=== PATIENT | female | born 1985 | race Caucasian/White ===

== ENCOUNTER 2017-01-01 17:44 | Emergency (ER) | payer SELFPAY ==
[2017-01-01 18:28] VITALS: BP 135/85
[2017-01-01] MEDS ORDERED: Amoxicillin/Clavulanate TAB* 875 MG PO ONE (19:54)
--- NOTE | 2017-01-01 20:01 | UC ---
Throat Pain/Nasal Adi HPI - HPI Summary HPI Summary: ONE MONTH OF SINUS CONGESTION, PRESSURE, EAR NOSE PRESSURE, COUGH. LAST FEW DAYS SYMPTOMS WORSENING, VOICE BECOMING HOARSE. - History of Current Complaint Chief Complaint: UCRespiratory Stated Complaint: SORE THROAT, AND EAR ACHE Time Seen by Provider: 01/01/17 19:27 Hx Obtained From: Patient Hx Last Menstrual Period: NOW Onset/Duration: Gradual Onset, Lasting Weeks Severity: Moderate Cough: Nonproductive Associated Signs & Symptoms: Positive: Hoarseness, Sinus Discomfort, Nasal Discharge - Epiglottits Risk Factors Epiglottis Risk Factors: Negative - Allergies/Home Medications Allergies/Adverse Reactions: Allergies Allergy/AdvReac Type Severity Reaction Status Date / Time Hydrocodone Allergy Nausea And Verified 01/01/17 18:28 Vomiting Home Medications: Home Medications Dextromethorphan-Phenylephrine [Vicks Dayquil Cold & Flu] 2 cap PO PRN 01/01/17 [History] PMH/Surg Hx/FS Hx/Imm Hx Previously Healthy: Yes - Surgical History Surgical History: Yes Surgery Procedure, Year, and Place: appy. bilateral shoulder operations. R breast lumpectomy - Family History Known Family History: Positive: Cardiac Disease - Father of cardiac illness - Social History Occupation: Employed Full-time Lives: With Family Alcohol Use: Rare Substance Use Type: None Smoking Status (MU): Current Every Day Smoker Type: Cigarettes Amount Used/How Often: 3-4 CIG/day When Did the Patient Quit Smoking/Using Tobacco: quit with - Immunization History Most Recent Influenza Vaccination: up to date Most Recent Tetanus Shot: 2016 Most Recent Pneumonia Vaccination: none Review of Systems Constitutional: Fatigue Skin: Negative Eyes: Negative ENT: Sore Throat, Ear Ache, Nasal Discharge, Sinus Congestion, Sinus Pain/ Tenderness Respiratory: Cough Cardiovascular: Negative Gastrointestinal: Negative Genitourinary: Negative Motor: Negative Neurovascular: Negative Musculoskeletal: Negative Neurological: Negative Psychological: Negative Is Patient Immunocompromised?: No All Other Systems Reviewed And Are Negative: Yes Physical Exam Triage Information Reviewed: Yes Appearance: No Pain Distress, Well-Nourished, Ill-Appearing - MILDLY Vital Signs: Initial Vital Signs Temp 98.8 F 01/01/17 18:25 Pulse 88 01/01/17 18:25 Resp 16 01/01/17 18:25 BP 135/85 01/01/17 18:25 Pulse Ox 100 01/01/17 18:25 Vital Signs Reviewed: Yes Eye Exam: Normal ENT: Positive: Hearing grossly normal, Nasal congestion, TM bulging, TM dull Dental Exam: Normal Neck exam: Normal Neck: Positive: Supple, Nontender, No Lymphadenopathy Respiratory Exam: Normal Respiratory: Positive: Chest non-tender, Lungs clear, Normal breath sounds, No respiratory distress, No accessory muscle use Cardiovascular Exam: Normal Cardiovascular: Positive: RRR, No Murmur, Pulses Normal Abdominal Exam: Normal Abdomen Description: Positive: Nontender, No Organomegaly Musculoskeletal Exam: Normal Musculoskeletal: Positive: Strength Intact, ROM Intact Neurological Exam: Normal Psychological Exam: Normal Skin Exam: Normal Throat Pain/Nasal Course/Dx - Differential Dx/Diagnosis Differential Diagnosis/HQI/PQRI: Pharyngitis, Sinusitis, Tonsillitis, URI Provider Diagnoses: SINUSITIS; BRONCHITIS; LARYNGITIS Discharge - Discharge Plan Condition: Stable Disposition: HOME Prescriptions: Amoxicillin/Clavulanate TAB* [Augmentin TAB 875*] 875 mg PO BID #20 tab Benzonatate CAP* [Tessalon 100 MG CAP*] 100 mg PO TID #15 cap Patient Education Materials: Sinusitis (ED), Laryngitis (ED), Syncope (ED), Upper Respiratory Infection (ED) Referrals: Derek Shafer MD [Primary Care Provider] -
== END 2017-01-01 20:00 | disposition home or self-care (01) ==
LOC: UCEAST 17:44
DX: J04.0 Acute laryngitis (principal); F17.210 Nicotine dependence, cigarettes, uncomplicated; J40 Bronchitis, not specified as acute or chronic; J01.90 Acute sinusitis, unspecified
CPT/HCPCS: 87651; 99212; A9270-GY; G0463

== ENCOUNTER 2017-10-12 00:13 | Emergency (ER) | payer SELFPAY ==
[2017-10-12] MEDS ORDERED: predniSONE TAB* 20 MG PO ONE (01:03)
[2017-10-12] MEDS ORDERED: Diazepam TAB(*) 5 MG PO ONE (01:03)
[2017-10-12] MEDS ORDERED: Ketorolac TAB * 10 MG TAB PO PRN (01:04)
[2017-10-12 01:54] LABS: Urine Appearance Clear; Urine Blood Negative (Negative); Urine Color Straw; Urine Ketones Negative (Negative); Urine Protein Negative (Negative); Urine Specific Gravity 1.003 (1.010-1.030); Urine Urobilinogen Negative (Negative)
--- NOTE | 2017-10-12 02:17 | ED ---
Back Pain - HPI Summary HPI Summary: Patient complains of sudden onset right lower back pain with radiation of pain and numbness and tingling down posterior right leg this evening while walking at [facility]. Denies trauma, fever, urinary retention, incontinence, bilateral leg pain, urinary symptoms, vaginal symptoms. History of degenerative disc disease, with chronic back pain. Denies history of sciatica. - History of Current Complaint Chief Complaint: EDBackInjuryPain Stated Complaint: SEVERE BACK PAIN Time Seen by Provider: 10/12/17 00:46 Hx Obtained From: Patient Hx Last Menstrual Period: NOW Onset/Duration: Sudden Onset Onset/Duration: Started Hours Ago Timing: Constant Back Pain Location: Is Discrete @ Severity Initially: Severe Severity Currently: Severe Pain Intensity: 10 Pain Scale Used: 0-10 Numeric Character: Sharp, Aching Aggravating Symptom(s): Movement, Bending Alleviating Symptom(s): Rest, Position Associated Signs And Symptoms: Positive: Numbness, Tingling - Allergies/Home Medications Allergies/Adverse Reactions: Allergies Allergy/AdvReac Type Severity Reaction Status Date / Time hydrocodone AdvReac Mild Nausea And Verified 10/12/17 00:14 Vomiting PMH/Surg Hx/FS Hx/Imm Hx Endocrine/Hematology History: Denies: Hx Diabetes, Hx Thyroid Disease Cardiovascular History: Denies: Hx Hypertension Respiratory History: Reports: Hx Asthma Denies: Hx Chronic Obstructive Pulmonary Disease (COPD) GI History: Denies: Hx Ulcer - Surgical History Surgery Procedure, Year, and Place: appy. bilateral shoulder operations. R breast lumpectomy Infectious Disease History: No Infectious Disease History: Denies: Hx Clostridium Difficile, Hx Hepatitis, Hx Human Immunodeficiency Virus (HIV), Hx of Known/Suspected MRSA, Hx Shingles, Hx Tuberculosis, Hx Known/ Suspected VRE, Hx Known/Suspected VRSA, History Other Infectious Disease, Traveled Outside the [place] in Last 30 Days - Family History Known Family History: Positive: Cardiac Disease - Father of cardiac illness - Social History Alcohol Use: Rare Substance Use Type: Reports: None Smoking Status (MU): Current Every Day Smoker Type: Cigarettes Amount Used/How Often: 3-4 CIG/day Review of Systems Constitutional: Negative Eyes: Negative ENT: Negative Cardiovascular: Negative Respiratory: Negative Gastrointestinal: Negative Genitourinary: Negative Musculoskeletal: Other Skin: Negative Neurological: Negative Psychological: Normal All Other Systems Reviewed And Are Negative: Yes Physical Exam - Summary Physical Exam Summary: No ecchymosis, erythema, deformity, swelling, extra warmth, mass noted to lower back, right leg. PMS intact distally. Tenderness to palpation along lower right back, right gluteus, right posterior thigh. Triage Information Reviewed: Yes Vital Signs On Initial Exam: Initial Vitals Temp Pulse Resp BP Pulse Ox 98.0 F 79 24 144/80 100 10/12/17 00:14 10/12/17 00:14 10/12/17 00:14 10/12/17 00:14 10/12/17 00:14 Vital Signs Reviewed: Yes Appearance: Positive: Well-Appearing Skin: Positive: Warm Head/Face: Positive: Normal Head/Face Inspection Eyes: Positive: Normal Neck: Positive: Supple Respiratory/Lung Sounds: Positive: Clear to Auscultation Cardiovascular: Positive: Normal Abdomen Description: Positive: Nontender Musculoskeletal: Positive: Normal Neurological: Positive: Normal Psychiatric: Positive: Normal AVPU Assessment: Alert - [place] Coma Scale Best Eye Response: 4 - Spontaneous Best Motor Response: 6 - Obeys Commands Best Verbal Response: 5 - Oriented Coma Scale Total: 15 Diagnostics - Vital Signs Vital Signs Temp Pulse Resp BP Pulse Ox 10/12/17 01:12 18 10/12/17 00:14 98.0 F 79 24 144/80 100 - Laboratory Lab Results: Lab Results 10/12/17 Range/Units 01:43 Urine Color Straw Urine Appearance Clear Urine pH 8.0 (5-9) Ur Specific [place] 1.003 L (1.010-1.030) Urine Protein Negative (Negative) Urine Ketones Negative (Negative) Urine Blood Negative (Negative) Urine Nitrate Negative (Negative) Urine Bilirubin Negative (Negative) Urine Urobilinogen Negative (Negative) Ur Leukocyte Esterase Negative (Negative) Urine Glucose Negative (Negative) Lab Statement: Any lab studies that have been ordered have been reviewed, and results considered in the medical decision making process. Back Pain Course/Dx - Course Course Of Treatment: Patient complains of sudden onset right lower back pain with radiation of pain and numbness and tingling down posterior right leg this evening while walking at [employer]. Denies trauma, fever, urinary retention, incontinence, bilateral leg pain, urinary symptoms, vaginal symptoms. History of degenerative disc disease, with chronic back pain. Denies history of sciatica. No ecchymosis, erythema, deformity, swelling, extra warmth, mass noted to lower back, right leg. PMS intact distally. Tenderness to palpation along lower right back, right gluteus, right posterior thigh. Patient ambulatory. Patient stated symptoms significantly improved with ibuprofen, prednisone, Valium. Rx for same. Recommend physical therapy. Follow up with orthopedics Dr. Aguilar. - Diagnoses Provider Diagnoses: Sciatica of right side Discharge - Sign-Out/Discharge Documenting (check all that apply): Patient Departure - Discharge Plan Condition: Stable Disposition: HOME Prescriptions: Diazepam TAB(*) [Valium TAB(*)] 5 mg PO TID PRN #6 tab MDD 3 tabs PRN Reason: Pain Ibuprofen TAB* [Motrin TAB* 600 MG] 600 mg PO Q6H PRN 5 Days #20 tab PRN Reason: Pain predniSONE TAB* [Deltasone 20 MG TAB*] 40 mg PO DAILY 5 Days #5 tab Patient Education Materials: Sciatica (ED), Lumbar Radiculopathy (ED), Lower Back Exercises (ED) Forms: *Work Release Referrals: Derek Shafer MD [Primary Care Provider] - Tawny Aguilar MD [Medical Doctor] - Additional Instructions: Follow-up with orthopedics Dr. Aguilar for back pain. Return to the ED for any new or worsening symptoms - Billing Disposition and Condition Condition: STABLE Disposition: Home
[2017-10-12 02:38] VITALS: BP 105/52
== END 2017-10-12 02:36 | disposition home or self-care (01) ==
LOC: ED 00:13
DX: M54.41 Lumbago with sciatica, right side (principal); F17.210 Nicotine dependence, cigarettes, uncomplicated; Z88.5 Allergy status to narcotic agent
CPT/HCPCS: 81003; 99282; A9270-GY; J7512

== ENCOUNTER 2018-07-21 06:00 | Inpatient (IN) | payer MEDICAID, OTHER ==
[~2018-07-21 06:00] MED LIST: Buffered Lidocaine 1% SYRIN* 1 ML/SYRINGE INTRADERM ONE; Lactated Ringers 1000 ML Bag* 1,000 ML IV SCH; Sodium Citrate/Citric Acid* 15 ML UDC PO ONE
[2018-07-21] MEDS ORDERED: ceFOXitin 2 GM IVPREMIX* 2 GM/50 ML BAG ONE (07:07)
[2018-07-21] MEDS ORDERED: Morphine PF AMP (0.5MG/ML)* 5 MG/10 ML AMP ONE (08:16)
[2018-07-21] MEDS ORDERED: OXYTOCIN* 10 UNITS/ML 1 ML VIAL ONE (09:24)
[2018-07-21] MEDS ORDERED: Lidocaine 2% PF * 5 ML VIAL ONE (09:24)
[2018-07-21] MEDS ORDERED: Propofol* 10 MG/ML 20 ML BTL ONE (09:24)
[2018-07-21] MEDS ORDERED: fentaNYL* 50 MCG/ML 2 ML VIAL (100 MCG VIAL) IV PRN (09:44)
[2018-07-21] MEDS ORDERED: DiMENhydriNATE IV* 50 MG/ML VIAL IV PUSH PRN (09:44)
[2018-07-21] MEDS ORDERED: Naloxone* 0.4 MG/ML 1 ML VIAL IV PRN ×2 (09:44→09:46)
[2018-07-21] MEDS ORDERED: Ketorolac INJ* 30 MG/ML 1 ML VIAL IV PRN (09:44)
[2018-07-21] MEDS ORDERED: Naloxone* 2 MG in NS 0.9% 250 ML* 250 ML IV PRN (09:46)
[2018-07-21] MEDS ORDERED: Nalbuphine* 10 MG/ML 1 ML VIAL IV PRN (09:46)
[2018-07-21] MEDS ORDERED: fentaNYL* 50 MCG/ML 2 ML VIAL (100 MCG VIAL) ONE (09:55)
[2018-07-21] MEDS ORDERED: Ketorolac INJ* 30 MG/ML 1 ML VIAL ONE (09:55)
--- NOTE | 2018-07-21 10:15 | OP ---
OPERATIVE REPORT: DATE OF OPERATION: 07/21/18 DATE OF : 87 SURGEON: Bradley Haynes MD. APPLIED PSYCHOLOGY CHAIR: Stephania Bundy CNM. ANESTHESIA: Spinal. PRE-OP DIAGNOSIS: Previous shoulder dystocia, desires sterilization. POST-OP DIAGNOSIS: Previous shoulder dystocia, desires sterilization. OPERATIVE PROCEDURE: Low-transverse section and bilateral tubal ligation. ESTIMATED BLOOD LOSS: 600 cc. SPECIMEN: Includes fallopian tubes. COMPLICATIONS: None. FINDINGS: Include normal uterus, tubes, and ovaries. Viable female. Apgars 8 and 9. Weight was 6 pounds 14 ounces.pt was given informed consent for vs vaginal with her history and questions were answered. DESCRIPTION OF PROCEDURE: The patient was identified, procedure identified as a low-transverse section. The patient was taken to the operating room , prepped and draped in the usual sterile fashion in the left lateral recumbent position under spinal anesthesia. Pfannenstiel incision was made in the abdomen , carried down through fat, fascia, and peritoneum. A transverse incision was made in the lower uterine segment and extended laterally using blunt dissection. The above was delivered in the Vertex presentation with ease. Cord was wrapped around the neck. This was looped off. The rest of the baby was delivered. The cord was doubly clamped and cut, and the was handed to the waiting banquet cook. Cord blood was obtained, placenta delivered spontaneously. The uterus was wiped out with a wet lap sponge. The uterine incision was then closed using 0 Polysorb in a running fashion. A second layer was used to imbricate the first layer. The right fallopian tube was grasped at the fimbriated end and ligated x2, and the right fimbria was excised. The same procedure was carried on the left after following it out to its fimbriated end. Good hemostasis was verified. The uterus was placed back into the abdominal cavity. The gutters were wiped out with a wet lap sponge. The incision was inspected and found to be hemostatic. Peritoneum was then closed using 3-0 Polysorb in a running fashion. Good hemostasis was achieved in the subrectus layers. The fascia was closed using 0-Polysorb in a running fashion. Good hemostasis was achieved in the subcu. Copious irrigation was utilized and suctioned out, and the skin was closed with 4-0 Monocryl in a subcuticular fashion. All sponge and instrument counts were correct, and the patient returned to the recovery room in stable condition. [id number]/[facility] #: [id number] [facility]
[2018-07-21] MEDS ORDERED: Oxytocin in LR* 20 UNITS/1,000 ML BAG IVPB ONE (10:18)
[2018-07-21] MEDS ORDERED: Ondansetron INJ* 2 MG/ML VIAL ONE (10:52)
[2018-07-21] MEDS ORDERED: Nalbuphine* 10 MG/ML 1 ML VIAL ONE (10:53)
[2018-07-21] MEDS ORDERED: Acetaminophen TAB* 325 MG PO PRN (10:56)
[2018-07-21] MEDS ORDERED: Dibucaine 1% 28.35 GM TUBE PR PRN (10:56)
[2018-07-21] MEDS ORDERED: Glycerin ADULT SUPP PR PRN (10:56)
[2018-07-21] MEDS ORDERED: Witch Hazel PAD* JAR TOPICAL PRN (10:56)
[2018-07-21] MEDS: Ondansetron INJ* 2 MG/ML VIAL IV PRN ×2 (10:56→17:06)
[2018-07-21] MEDS ORDERED: Oxytocin in LR* 20 UNITS/1,000 ML BAG IVPB SCH (11:00)
[2018-07-21] MEDS ORDERED: Lactated Ringers 1000 ML Bag* 1,000 ML IV SCH (11:00)
[2018-07-21] MEDS ORDERED: diPHENhydraMINE IV* 50 MG/ML 1 ml VIAL (BENADRYL) SLOW PUSH PRN (12:05)
[2018-07-21] MEDS: Nalbuphine* 10 MG/ML 1 ML VIAL IV PRN ×2 (12:23→20:15)
[2018-07-21] MEDS: Simethicone TAB* 80 MG TAB.CHEW PO SCH ×3 (13:02→21:10)
[2018-07-21] MEDS: Docusate CAP* 100 MG PO SCH ×2 (13:02→21:10)
[2018-07-21] MEDS: oxyCODONE/Acetamin 5/325 MG* TAB PO PRN ×3 (13:03→21:16)
[2018-07-21] MEDS: Ketorolac INJ* 30 MG/ML 1 ML VIAL IV PRN (17:09)
[2018-07-22] MEDS ORDERED: Zolpidem TAB* 5 MG PO PRN (00:30)
[2018-07-22] MEDS: Ketorolac INJ* 30 MG/ML 1 ML VIAL IV PRN ×2 (00:35→07:13)
[2018-07-22] MEDS: oxyCODONE/Acetamin 5/325 MG* TAB PO PRN ×4 (02:28→21:13)
[2018-07-22 07:28] LABS: ABS Eosinophils 0.1 10^3/ul (0-0.6); ABS Lymphocytes 1.6 10^3/ul (1.0-4.8); ABS Monocytes 0.6 10^3/ul (0-0.8); ABS Neutrophils 7.1 10^3/ul (1.5-7.7); Eosinophil % 0.9 %; Hematocrit 30 % (35-47); Hemoglobin 10.1 g/dL (12.0-16.0); Lymphocyte % 17.2 %; Mean Corpuscular HGB Conc 34 g/dL (31-36); Mean Corpuscular Hemoglobin 28 pg (27-31); Mean Corpuscular Volume 83 fL (80-97); Platelet Count 238 10^3/uL (150-450); Red Blood Count 3.57 10^6 /uL (3.70-4.87); Red Cell Distribution Width 14 % (10.5-15); White Blood Count 9.4 10^3/uL (3.5-10.8)
[2018-07-22] MEDS: Docusate CAP* 100 MG PO SCH ×3 (10:37→21:14)
[2018-07-22] MEDS: Simethicone TAB* 80 MG TAB.CHEW PO SCH ×3 (10:37→18:14)
[2018-07-22] MEDS: Ferrous Gluconate TAB* 324 MG TAB PO SCH ×2 (10:50→21:13)
[2018-07-22] MEDS: Ibuprofen TAB* 600 MG PO PRN ×2 (14:01→20:05)
[2018-07-23] MEDS: Simethicone TAB* 80 MG TAB.CHEW PO SCH ×5 (01:38→20:28)
[2018-07-23] MEDS: Ibuprofen TAB* 600 MG PO PRN ×3 (02:05→15:44)
[2018-07-23] MEDS: oxyCODONE/Acetamin 5/325 MG* TAB PO PRN ×4 (02:05→20:28)
[2018-07-23] MEDS: Docusate CAP* 100 MG PO SCH ×3 (08:41→20:28)
[2018-07-23] MEDS ORDERED: Nicotine* 2MG (FRUIT FLAVOR) GUM PO PRN (22:03)
[2018-07-24] MEDS: oxyCODONE/Acetamin 5/325 MG* TAB PO PRN ×3 (00:34→07:49)
[2018-07-24] MEDS: Ibuprofen TAB* 600 MG PO PRN ×2 (00:35→07:49)
[2018-07-24] MEDS: Docusate CAP* 100 MG PO SCH (07:49)
[2018-07-24] MEDS: Simethicone TAB* 80 MG TAB.CHEW PO SCH (07:49)
[2018-07-24 09:45] VITALS: BP 139/80
== END 2018-07-24 11:36 | disposition home or self-care (01) | DRG 540 ==
LOC: MCHOB 06:00
PROVIDERS: ADMIT Obstetrics & Gynecology; ATTEND Obstetrics & Gynecology
PROC: 0UB70ZZ Excision of Bilateral Fallopian Tubes, Open Approach (ICD-10-PCS; 2018-07-21)
PROC: 10D00Z1 Extraction of Products of Conception, Low, Open Approach (ICD-10-PCS; principal; 2018-07-21 07:45)
DX: O69.81X0 Labor and delivery complicated by cord around neck, without compression, not applicable or unspecified (principal); Z3A.39 39 weeks gestation of pregnancy; Z37.0 Single live birth; Z30.2 Encounter for sterilization
CPT/HCPCS: 36415; 85025; 88302; A9270-GY; J0694; J1885; J2300; J2405; J2590; J2704; J3010

== ENCOUNTER 2019-05-10 10:24 | Emergency (ER) | payer SELFPAY ==
[2019-05-10 11:24] VITALS: BP 122/88
--- NOTE | 2019-05-10 12:55 | UC ---
Lower Extremity/Ankle HPI - HPI Summary HPI Summary: 33-year-old male presenting with left dorsal foot pain and ankle pain 6 days. Patient states that her 9-month-old ran over her foot with her walker, which the patient states is very heavy. Unsure of bruising because she has a tattoo over her dorsal foot but has noted swelling. Increased pain with weightbearing and ambulation. Denies numbness and tingling. She has tried staying off of it as much as she can but she states she has 3 kids and hasn't been able to rest much. Taking ibuprofen for pain relief. - History of Current Complaint Chief Complaint: UCLowerExtremity Stated Complaint: FOOT INJURY Hx Obtained From: Patient Hx Last Menstrual Period: 04/15/19 Pain Intensity: 8 Pain Scale Used: 0-10 Numeric - Allergies/Home Medications Allergies/Adverse Reactions: Allergies Allergy/AdvReac Type Severity Reaction Status Date / Time hydrocodone AdvReac Mild Nausea And Verified 05/10/19 11:19 Vomiting Home Medications: Home Medications Sertraline* [Zoloft*] 1 tab PO DAILY 04/07/19 [History Confirmed 05/10/19] PMH/Surg Hx/FS Hx/Imm Hx Previously Healthy: Yes - Surgical History Surgical History: Yes Surgery Procedure, Year, and Place: appy. bilateral shoulder operations. R breast lumpectomy c/sec - Family History Known Family History: Positive: Cardiac Disease - Father of cardiac illness - Social History Alcohol Use: None Substance Use Type: None Smoking Status (MU): Light Every Day Tobacco Smoker Type: Cigarettes Amount Used/How Often: 1-2 CIG/day Have You Smoked in the Last Year: Yes When Did the Patient Quit Smoking/Using Tobacco: quit with Household Exposure Type: Cigarettes - Immunization History Most Recent Influenza Vaccination: unknown Most Recent Tetanus Shot: 2016 Most Recent Pneumonia Vaccination: none Review of Systems All Other Systems Reviewed And Are Negative: No Constitutional: Positive: Negative Skin: Positive: Negative Respiratory: Positive: Negative Cardiovascular: Positive: Negative Neurovascular: Positive: Negative Musculoskeletal: Positive: Arthralgia - left dorsal foot and left ankle pain, Edema - L foot Neurological/Mental Status: Positive: Negative Physical Exam - Summary Physical Exam Summary: Vital Signs Reviewed: Yes A+Ox3, no distress Eyes: Conjunctiva Clear ENT: Hearing grossly normal neck: supple Respiratory: Positive: No respiratory distress, No accessory muscle use Cardiovascular: skin color reflect adequate perfusion Musculoskeletal Exam: DANGELO x 4 without difficulty, +TTP left forefoot, +mild edema, no ecchymosis or erythema observed but patient also has tattoo over area of injury so unable to fully appreciate condition of skin, strong pedal pulses, sensation grossly intact, ROM intact Neurological: Positive: Alert Psychological: Positive: age appropriate behavior Skin: Positive: no rash, no ecchymosis Vital Signs: Initial Vital Signs Temp 99.1 F 05/10/19 11:19 Pulse 64 05/10/19 11:19 Resp 16 05/10/19 11:19 BP 122/88 05/10/19 11:19 Pulse Ox 100 05/10/19 11:19 Diagnostics - Radiology left foot Radiology Interpretation Completed By: Radiologist Summary of Radiographic Findings: REPORT AND IMPRESSION: #. No acute or subacute fracture evident at the ankle or foot. Negative for osteochondral lesions. #. Chronic fragmented appearance of the medial sesamoid at the first MTP and relative sclerosis compared with the lateral sesamoid which may reflect sequela of remote injury and secondary avascular necrosis. #. Normal articular alignment at the ankle and foot. #. Preserved joint spaces without significant arthropathic change. #. Unremarkable soft tissue contours. Lower Extremity Course/Dx - Course Course Of Treatment: Discussed negative radiographs of the patient. Educated on for contusion and symptomatically treatment. The patient Ian wrap and postop shoe to help alleviate pain. Instructed to follow up with PCP or orthopedics if pain persists. Patient voiced understanding and agreed with the treatment plan. - Differential Dx/Diagnosis Differential Diagnosis/HQI/PQRI: Contusion, Fracture (Closed), Sprain, Strain Provider Diagnosis: Contusion of left foot Discharge ED - Sign-Out/Discharge Documenting (check all that apply): Patient Departure All imaging exams completed and their final reports reviewed: Yes - Discharge Plan Condition: Stable Disposition: HOME Patient Education Materials: Foot Contusion (ED) Referrals: Hamilton Hurt MD [Medical Doctor] - If Needed Derek Shafer MD [Primary Care Provider] - If Needed Additional Instructions: As discussed, your radiographs did not show any abnormalities. Rest, ice, elevate, and use the ian wrap and post op shoe to help alleviate pain. You may also take over the counter pain medications as directed. Follow up with your primary care provider or orthopedics referral listed below if pain persists. - Billing Disposition and Condition Condition: STABLE Disposition: Home
== END 2019-05-10 13:55 | disposition home or self-care (01) ==
LOC: UCEAST 10:24
DX: S90.32XA Contusion of left foot, initial encounter (principal); M89.8X7 Other specified disorders of bone, ankle and foot; F17.210 Nicotine dependence, cigarettes, uncomplicated; Z88.5 Allergy status to narcotic agent; X58.XXXA Exposure to other specified factors, initial encounter; Y92.9 Unspecified place or not applicable
CPT/HCPCS: 99213; G0463

== ENCOUNTER 2019-07-09 01:15 | Emergency (ER) | payer SELFPAY ==
[2019-07-09] MEDS ORDERED: Ketorolac INJ* 30 MG/ML 1 ML VIAL IV PUSH ONE (01:37)
[2019-07-09] MEDS ORDERED: Morphine 4 MG/ML VIAL (1 ml) 4 MG/ML VIAL IV ONE (01:37)
--- NOTE | 2019-07-09 01:45 | ED ---
Adult Trauma - HPI Summary HPI Summary: 33 year old female presents with neck and left arm injury today. States that she was tripped by her go and ended up rolling down her stairs. She landed on her butt. She has chronic lower back pain that is unchanged. She also admits to pain under her ribs. Denies any bowel pain. Pain is worst when she takes deep breath. She admits to left shoulder and left mid arm pain. Denies any elbow or wrist pain. No lower extremity pain. Denies any head injury. No loss consciousness. She states she did have some alcohol earlier today. No nausea vomiting. - History of Current Complaint Chief Complaint: EDFall Stated Complaint: FELL DOWN STEPS PER PT Time Seen by Provider: 07/09/19 01:22 Hx Last Menstrual Period: 04/15/19 Pain Intensity: 10 - Allergy/Home Medications Allergies/Adverse Reactions: Allergies Allergy/AdvReac Type Severity Reaction Status Date / Time hydrocodone AdvReac Mild Nausea And Verified 07/09/19 02:30 Vomiting Home Medications: Home Medications Sertraline* [Zoloft*] 1 tab PO DAILY 04/07/19 [History Confirmed 07/09/19] Cyclobenzaprine TAB* [Flexeril 10 MG TAB*] 10 mg PO TID PRN #21 tab 07/09/19 [Rx ] PMH/Surg Hx/FS Hx/Imm Hx Endocrine/Hematology History: Denies: Hx Diabetes, Hx Thyroid Disease Cardiovascular History: Denies: Hx Hypertension Respiratory History: Reports: Hx Asthma Denies: Hx Chronic Obstructive Pulmonary Disease (COPD) GI History: Denies: Hx Ulcer - Surgical History Surgery Procedure, Year, and Place: appy. bilateral shoulder operations. R breast lumpectomy c/sec Infectious Disease History: No Infectious Disease History: Denies: Hx Clostridium Difficile, Hx Hepatitis, Hx Human Immunodeficiency Virus (HIV), Hx of Known/Suspected MRSA, Hx Shingles, Hx Tuberculosis, Hx Known/ Suspected VRE, Hx Known/Suspected VRSA, History Other Infectious Disease, Traveled Outside the [place] in Last 30 Days - Family History Known Family History: Positive: Cardiac Disease - Father of cardiac illness - Social History Alcohol Use: None Substance Use Type: Reports: None Smoking Status (MU): Light Every Day Tobacco Smoker Type: Cigarettes Amount Used/How Often: 1-2 CIG/day Have You Smoked in the Last Year: Yes Review of Systems Negative: Fever Positive: Other - pain under bilateral ribs Positive: Shortness Of Breath Negative: Abdominal Pain, Vomiting, Diarrhea, Nausea Positive: Myalgia - neck pain, left shoulder and arm pain All Other Systems Reviewed And Are Negative: Yes Physical Exam Triage Information Reviewed: Yes Vital Signs On Initial Exam: Initial Vitals Temp Pulse Resp BP Pulse Ox 98.2 F 87 22 162/86 100 07/09/19 01:18 07/09/19 01:18 07/09/19 01:18 07/09/19 01:18 07/09/19 01:18 Vital Signs Reviewed: Yes Appearance: Positive: Well-Appearing Skin: Positive: Warm, Dry Head/Face: Positive: Normal Head/Face Inspection Eyes: Positive: Normal, EOMI, TERRANCE, Conjunctiva Clear ENT: Positive: Pharynx normal, TMs normal Neck: Positive: Other: - tenderness neck and upper thoracic back Respiratory/Lung Sounds: Positive: Clear to Auscultation, Breath Sounds Present , Other - tenderness bilateral lower ribs Cardiovascular: Positive: Normal, RRR Abdomen Description: Positive: Nontender, Soft Bowel Sounds: Positive: Present Musculoskeletal: Positive: Limited @ - left shoulder, Other - tenderness over left shoulder and arm, good pulses Neurological: Positive: Normal Psychiatric: Positive: Normal Procedures - Sedation Patient Received Moderate/Deep Sedation with Procedure: No Diagnostics - Vital Signs Vital Signs Temp Pulse Resp BP Pulse Ox 07/09/19 01:18 98.2 F 87 22 162/86 100 - Laboratory Lab Statement: Any lab studies that have been ordered have been reviewed, and results considered in the medical decision making process. - Radiology shoulder Radiology Interpretation Completed By: ED Physician Summary of Radiographic Findings: no fracture humerus Radiology Interpretation Completed By: ED Physician Summary of Radiographic Findings: no fracture ribs Radiology Interpretation Completed By: ED Physician Summary of Radiographic Findings: no displaced fracture - CT neck CT Interpretation Completed By: Radiologist Summary of CT Findings: IMPRESSION: No acute cervical spine fracture or other acute traumatic CT pathology. thoracic CT Interpretation Completed By: Radiologist Summary of CT Findings: IMPRESSION: No acute cervical spine fracture or other acute traumatic CT pathology. Re-Evaluation - Re-Evaluation First Eval Re-Evaluation Time: 02:46 Change: Improved Comment: feeling better, discussed results Adult Trauma Course/Dx - Course Course Of Treatment: 33 year old female presents with neck and left arm injury today. States that she was tripped by her go and ended up rolling down her stairs. She landed on her butt. She has chronic lower back pain that is unchanged. She also admits to pain under her ribs. Denies any bowel pain. Pain is worst when she takes deep breath. She admits to left shoulder and left mid arm pain. Denies any elbow or wrist pain. No lower extremity pain. Denies any head injury. No loss consciousness. She states she did have some alcohol earlier today. No nausea vomiting. she tried to catch herself and hurt her shoulder. On exam tenderness over neck. Tenderness over bilateral lower ribs. nontender abdomen. Tenderness over left shoulder and mid forearm. Neurovascular intact. xray shoulder and humerus no fracture preliminary. ribs no displaced fracture. CT neck and thoracic no fracture. gave sling. will have follow up with primary. gave referral to ortho if shoulder continues to have pain. she states does have history of bursitis of shoulder. patient understand and agrees with plan. - Diagnoses Differential Diagnosis/HQI/PQRI: Positive: Contusion(s), Fracture, Sprain Provider Diagnoses: Fall, Neck pain, Rib pain, Left arm pain - Critical Care Time Critical Care Statement: Critical care time is provided exclusive of any time spent performing procedures. Discharge ED - Sign-Out/Discharge Documenting (check all that apply): Patient Departure - Discharge Plan Condition: Stable Disposition: HOME Prescriptions: Cyclobenzaprine TAB* [Flexeril 10 MG TAB*] 10 mg PO TID PRN #21 tab PRN Reason: Pain - Moderate Patient Education Materials: Shoulder Pain (ED), Neck Pain (ED) Referrals: Derek Shafer MD [Primary Care Provider] - Additional Instructions: Take muscle relaxers three times a day Use ibuprofen or Tylenol for pain every 6 hours ice/heat area, move as much as possible Follow up with primary within 5 days follow up with ortho if no improvement with shoulder Return to ED if develop any new or worsening symptoms - Billing Disposition and Condition Condition: STABLE Disposition: Home
[2019-07-09 03:15] VITALS: BP 121/66
--- OUTSIDE RECORDS SUMMARY | 2019-07-09 03:20 | XMS REPORT | Continuity of Care Document ---
:1985 External Reference #:[id number] Author Name Marito Mantilla M.D. (transmitted by agent of provider Roberta Sanford) Address [address] [place] [address] Care Team Providers Name Role Phone [facility] - [facility] Care Team Information Spiritual Advisor [phone] Problems Description No Information Available Social History Type Date Description Comments Sex Unknown ETOH Use Currently consumes alcohol Tobacco Use Start: Unknown Patient is a current smoker, smokes every day Smoking Status Reviewed: 05/18/19 Patient is a current smoker, smokes every day Exercise Type/Frequency Exercises sporadically Allergies, Adverse Reactions, Alerts Description No Known Drug Allergies Medications Description No Active Medications Immunizations Description No Information Available Vital Signs Date Vital Result Comment 05/18/2019 10:59am Height 67 inches 5'7" Weight 160.00 lb Heart Rate 86 /min BP Systolic 136 mmHg BP Diastolic 70 mmHg Body Temperature 98.0 F Pain Level 8 BMI (Body Mass Index) 25.1 kg/m2 Results Description No Information Available Procedures Description No Information Available Medical Devices Description No Information Available Encounters Type Date Location Provider Dx Diagnosis Office Visit 05/18/2019 [facility] Mar[facility] S90.32[facility], [facility] Assessments Date Code Description Provider 05/18/2019 S90.32xA Contusion of left foot, initial encounter Marito Mantilla M.D. Plan of Treatment Future Appointment(s):06/13/2019 10:30 am - Marito Mantilla M.D. at [facility] at [id number]/18/2019 - Marito Mantilla M.D.S90.32xA Contusion of left foot, initial encounterNew Therapy:Physical TherapyFollow up:4-5 weeks Functional Status Description No Information Available Mental Status Description No Information Available Referrals Description No Information Available
--- OUTSIDE RECORDS SUMMARY | 2019-07-09 03:20 | XMS REPORT | Continuity of Care Document ---
:1985 External Reference #:[id number] Author Name Marito Mantilla M.D. (transmitted by agent of provider Faby Lane) Address [address] [place] [address] Care Team Providers Name Role Phone [facility] - [facility] Care Team Information Molder Apprentice [phone] Problems Description No Information Available Social History [...] Medical Devices Description No Information Available Encounters Description No Information Available Assessments Date Code Description Provider 05/18/2019 S90.32xA Contusion of left foot, initial encounter Marito Mantilla M.D. Plan of Treatment No Information Available Functional Status Description No Information Available Mental Status Description No Information Available Referrals Description No Information Available
== END 2019-07-09 03:05 | disposition home or self-care (01) ==
LOC: ED 01:15
DX: R07.81 Pleurodynia (principal); M54.2 Cervicalgia; M25.512 Pain in left shoulder; R06.02 Shortness of breath; F17.210 Nicotine dependence, cigarettes, uncomplicated; Z91.81 History of falling
CPT/HCPCS: 71110; 72125; 72128; 96374; 96375; 99283; J1885; J2270